=== PATIENT | male | born 1975 | race Caucasian/White ===

== ENCOUNTER 2021-02-12 15:22 | Outpatient (REF) | payer OTHER, SELFPAY | END 2021-02-12 15:23 | disposition home or self-care (01) | LOC: HO.BBR 15:22 | PROVIDERS: Visit Provider Internal Medicine Gastroenterology | DX: E83.118 Other hemochromatosis (principal) | CPT/HCPCS: 85014; 85018; 99195 ==

== ENCOUNTER 2021-04-09 15:19 | Outpatient (REF) | payer OTHER, SELFPAY | END 2021-04-09 15:20 | disposition home or self-care (01) | LOC: HO.BBR 15:19 | PROVIDERS: PCP Family Medicine; Visit Provider Internal Medicine Gastroenterology | DX: E83.118 Other hemochromatosis (principal) | CPT/HCPCS: 36415; 85014; 85018; 99195 ==

== ENCOUNTER 2021-05-11 14:46 | Outpatient (REF) | payer OTHER, SELFPAY | END 2021-05-11 14:47 | disposition home or self-care (01) | LOC: HO.BBR 14:46 | PROVIDERS: Visit Provider Internal Medicine Gastroenterology | DX: E83.110 Hereditary hemochromatosis (principal) | CPT/HCPCS: 36415; 85014; 85018; 99195 ==

== ENCOUNTER 2021-06-11 15:01 | Outpatient (REF) | payer OTHER, SELFPAY | END 2021-06-11 15:02 | disposition home or self-care (01) | LOC: HO.BBR 15:01 | PROVIDERS: PCP Family Medicine; Visit Provider Internal Medicine Gastroenterology | DX: E83.118 Other hemochromatosis (principal) | CPT/HCPCS: 85018; 99195 ==

== ENCOUNTER 2021-07-16 15:19 | Outpatient (REF) | payer OTHER, SELFPAY | END 2021-07-16 15:20 | disposition home or self-care (01) | LOC: HO.BBR 15:19 | PROVIDERS: Visit Provider Internal Medicine Gastroenterology | DX: E83.119 Hemochromatosis, unspecified (principal) | CPT/HCPCS: 85014; 85018; 99195 ==

== ENCOUNTER 2021-08-16 15:19 | Outpatient (REF) | payer OTHER, SELFPAY | END 2021-08-16 15:20 | disposition home or self-care (01) | LOC: HO.BBR 15:19 | PROVIDERS: PCP Family Medicine; Visit Provider Internal Medicine Gastroenterology | DX: E83.118 Other hemochromatosis (principal) | CPT/HCPCS: 85014; 85018; 99195 ==

== ENCOUNTER 2021-09-20 15:23 | Outpatient (REF) | payer OTHER, SELFPAY | END 2021-09-20 15:24 | disposition home or self-care (01) | LOC: HO.BBR 15:23 | PROVIDERS: Visit Provider Internal Medicine Gastroenterology | DX: E83.118 Other hemochromatosis (principal) | CPT/HCPCS: 85014; 85018; 99195 ==

== ENCOUNTER 2021-10-23 15:31 | Outpatient (REF) | payer OTHER, SELFPAY | END 2021-10-23 15:32 | disposition home or self-care (01) | LOC: HO.BBR 15:31 | PROVIDERS: Visit Provider Internal Medicine Gastroenterology | DX: E83.118 Other hemochromatosis (principal) | CPT/HCPCS: 85018; 99195 ==

== ENCOUNTER 2021-11-22 15:08 | Outpatient (REF) | payer OTHER, SELFPAY ==
[2021-11-22 16:53] LABS: Ferritin 77 ng/mL (20-250)
== END 2021-11-22 15:09 | disposition home or self-care (01) ==
LOC: HO.BBR 15:08
PROVIDERS: Visit Provider Internal Medicine Gastroenterology
DX: E83.118 Other hemochromatosis (principal)
CPT/HCPCS: 36415; 82728; 85014; 85018; 99195

== ENCOUNTER 2021-12-21 15:08 | Outpatient (REF) | payer OTHER, SELFPAY | END 2021-12-21 15:09 | disposition home or self-care (01) | LOC: HO.BBR 15:08 | PROVIDERS: Visit Provider Internal Medicine Gastroenterology | DX: E83.118 Other hemochromatosis (principal) | CPT/HCPCS: 85014; 85018; 99195 ==

== ENCOUNTER 2022-02-13 15:27 | Outpatient (REF) | payer OTHER, SELFPAY | END 2022-02-13 15:28 | disposition home or self-care (01) | LOC: HO.BBR 15:27 | PROVIDERS: Visit Provider Internal Medicine Gastroenterology | DX: E83.118 Other hemochromatosis (principal) | CPT/HCPCS: 85014; 85018; 99195 ==

== ENCOUNTER 2022-03-20 15:35 | Outpatient (REF) | payer OTHER, SELFPAY | END 2022-03-20 15:36 | disposition home or self-care (01) | LOC: HO.BBR 15:35 | PROVIDERS: Visit Provider Internal Medicine Gastroenterology | DX: E83.118 Other hemochromatosis (principal) | CPT/HCPCS: 85014; 85018; 99195 ==

== ENCOUNTER 2022-04-19 15:27 | Outpatient (REF) | payer OTHER, SELFPAY | END 2022-04-19 15:28 | disposition home or self-care (01) | LOC: HO.BBR 15:27 | PROVIDERS: Visit Provider Internal Medicine Gastroenterology | DX: E83.118 Other hemochromatosis (principal) | CPT/HCPCS: 85018; 99195 ==

== ENCOUNTER 2022-05-22 15:23 | Outpatient (REF) | payer OTHER, SELFPAY | END 2022-05-22 15:24 | disposition home or self-care (01) | LOC: HO.BBR 15:23 | PROVIDERS: Visit Provider Internal Medicine Gastroenterology | DX: E83.118 Other hemochromatosis (principal) | CPT/HCPCS: 85014; 85018; 99195 ==

== ENCOUNTER 2022-06-26 14:34 | Outpatient (REF) | payer OTHER, SELFPAY | END 2022-06-26 14:35 | disposition home or self-care (01) | LOC: HO.BBR 14:34 | PROVIDERS: Visit Provider Internal Medicine Gastroenterology | DX: E83.118 Other hemochromatosis (principal) | CPT/HCPCS: 85014; 85018; 99195 ==

== ENCOUNTER 2022-07-24 14:42 | Outpatient (REF) | payer OTHER, SELFPAY | END 2022-07-24 14:43 | disposition home or self-care (01) | LOC: HO.BBR 14:42 | PROVIDERS: Visit Provider Internal Medicine Gastroenterology | DX: E83.118 Other hemochromatosis (principal) | CPT/HCPCS: 85014; 85018; 99195 ==

== ENCOUNTER 2022-09-04 15:28 | Outpatient (REF) | payer OTHER, SELFPAY | END 2022-09-04 15:29 | disposition home or self-care (01) | LOC: HO.BBR 15:28 | PROVIDERS: Visit Provider Internal Medicine Gastroenterology | DX: E83.118 Other hemochromatosis (principal) | CPT/HCPCS: 85014; 85018; 99195 ==

== ENCOUNTER 2022-10-09 15:14 | Outpatient (REF) | payer OTHER, SELFPAY | END 2022-10-09 15:15 | disposition home or self-care (01) | LOC: HO.BBR 15:14 | PROVIDERS: Visit Provider Internal Medicine Gastroenterology | DX: E83.118 Other hemochromatosis (principal) | CPT/HCPCS: 85014; 85018; 99195 ==

== ENCOUNTER 2022-11-13 15:21 | Outpatient (REF) | payer OTHER, SELFPAY | END 2022-11-13 15:22 | disposition home or self-care (01) | LOC: HO.BBR 15:21 | PROVIDERS: Visit Provider Internal Medicine Gastroenterology | DX: E83.118 Other hemochromatosis (principal) | CPT/HCPCS: 85014; 85018; 99195 ==

== ENCOUNTER 2022-12-19 15:11 | Outpatient (REF) | payer OTHER, SELFPAY | END 2022-12-19 15:12 | disposition home or self-care (01) | LOC: HO.BBR 15:11 | PROVIDERS: Visit Provider Internal Medicine Gastroenterology | DX: E83.118 Other hemochromatosis (principal) | CPT/HCPCS: 85018; 99195 ==

== ENCOUNTER 2023-01-30 15:24 | Outpatient (REF) | payer OTHER, SELFPAY | END 2023-01-30 15:25 | disposition home or self-care (01) | LOC: HO.BBR 15:24 | PROVIDERS: PCP Family Medicine; Visit Provider Internal Medicine Gastroenterology | DX: E83.118 Other hemochromatosis (principal) | CPT/HCPCS: 85018; 99195 ==

== ENCOUNTER 2023-03-06 15:22 | Outpatient (REF) | payer OTHER, SELFPAY | END 2023-03-06 15:23 | disposition home or self-care (01) | LOC: HO.BBR 15:22 | PROVIDERS: Visit Provider Internal Medicine Gastroenterology | DX: E83.118 Other hemochromatosis (principal) | CPT/HCPCS: 85018; 99195 ==

== ENCOUNTER 2023-04-03 15:25 | Outpatient (REF) | payer OTHER, SELFPAY | END 2023-04-03 15:26 | disposition home or self-care (01) | LOC: HO.BBR 15:25 | PROVIDERS: Visit Provider Internal Medicine Gastroenterology | DX: E83.118 Other hemochromatosis (principal) | CPT/HCPCS: 85014; 85018; 99195 ==

== ENCOUNTER 2023-05-20 15:19 | Outpatient (REF) | payer OTHER, SELFPAY | END 2023-05-20 15:20 | disposition home or self-care (01) | LOC: HO.BBR 15:19 | PROVIDERS: Visit Provider Internal Medicine Gastroenterology | DX: E83.118 Other hemochromatosis (principal) | CPT/HCPCS: 85018; 99195 ==

== ENCOUNTER 2023-06-23 14:54 | Outpatient (REF) | payer OTHER, SELFPAY | END 2023-06-23 14:55 | disposition home or self-care (01) | LOC: HO.BBR 14:54 | PROVIDERS: Visit Provider Internal Medicine Gastroenterology | DX: E83.118 Other hemochromatosis (principal) | CPT/HCPCS: 85018; 99195 ==

== ENCOUNTER 2023-07-24 14:23 | Outpatient (REF) | payer OTHER, SELFPAY | END 2023-07-24 14:24 | disposition home or self-care (01) | LOC: HO.BBR 14:23 | PROVIDERS: Visit Provider Internal Medicine Gastroenterology | DX: E83.118 Other hemochromatosis (principal) | CPT/HCPCS: 85018; 99195 ==

== ENCOUNTER 2023-08-28 15:00 | Outpatient (REF) | payer OTHER, SELFPAY | END 2023-08-28 15:01 | disposition home or self-care (01) | LOC: HO.BBR 15:00 | PROVIDERS: PCP Family Medicine; Visit Provider Internal Medicine Gastroenterology | DX: E83.118 Other hemochromatosis (principal) | CPT/HCPCS: 85014; 85018; 99195 ==

== ENCOUNTER 2023-10-08 15:18 | Outpatient (REF) | payer OTHER, SELFPAY | END 2023-10-08 15:19 | disposition home or self-care (01) | LOC: HO.BBR 15:18 | PROVIDERS: PCP Family Medicine; Visit Provider Internal Medicine Gastroenterology | DX: E83.118 Other hemochromatosis (principal) | CPT/HCPCS: 85014; 85018; 99195 ==

== ENCOUNTER 2023-12-09 14:40 | Outpatient (REF) | payer OTHER, SELFPAY | END 2023-12-09 14:41 | disposition home or self-care (01) | LOC: HO.BBR 14:40 | PROVIDERS: PCP Family Medicine; Visit Provider Internal Medicine Gastroenterology | DX: E83.118 Other hemochromatosis (principal) | CPT/HCPCS: 85018; 99195 ==

== ENCOUNTER 2024-01-15 14:37 | Outpatient (REF) | payer OTHER, SELFPAY | END 2024-01-15 14:38 | disposition home or self-care (01) | LOC: HO.BBR 14:37 | PROVIDERS: PCP Family Medicine; Visit Provider Internal Medicine Gastroenterology | DX: E83.118 Other hemochromatosis (principal) | CPT/HCPCS: 85018; 99195 ==

== ENCOUNTER 2024-03-02 15:17 | Outpatient (REF) | payer OTHER, SELFPAY | END 2024-03-02 15:18 | disposition home or self-care (01) | LOC: HO.BBR 15:17 | PROVIDERS: PCP Family Medicine; Visit Provider Internal Medicine Gastroenterology | DX: E83.118 Other hemochromatosis (principal) | CPT/HCPCS: 85014; 85018; 99195 ==

== ENCOUNTER 2024-04-07 14:43 | Outpatient (REF) | payer OTHER, SELFPAY | END 2024-04-07 14:44 | disposition home or self-care (01) | LOC: HO.BBR 14:43 | PROVIDERS: PCP Family Medicine; Visit Provider Internal Medicine Gastroenterology | DX: E83.118 Other hemochromatosis (principal) | CPT/HCPCS: 85014; 85018; 99195 ==

== ENCOUNTER 2024-05-27 13:53 | Outpatient (REF) | payer OTHER, SELFPAY | END 2024-05-27 13:54 | disposition home or self-care (01) | LOC: HO.BBR 13:53 | PROVIDERS: PCP Family Medicine; Visit Provider Internal Medicine Gastroenterology | DX: E83.118 Other hemochromatosis (principal) | CPT/HCPCS: 85014; 85018; 99195 ==

== ENCOUNTER 2024-07-05 14:50 | Outpatient (REF) | payer OTHER, SELFPAY | END 2024-07-05 14:51 | disposition home or self-care (01) | LOC: HO.BBR 14:50 | PROVIDERS: PCP Family Medicine; Visit Provider Internal Medicine Gastroenterology | DX: E83.118 Other hemochromatosis (principal) | CPT/HCPCS: 85018; 99195 ==

== ENCOUNTER 2024-08-05 14:52 | Outpatient (REF) | payer OTHER, SELFPAY | END 2024-08-05 14:53 | disposition home or self-care (01) | LOC: HO.BBR 14:52 | PROVIDERS: PCP Family Medicine; Visit Provider Internal Medicine Gastroenterology | DX: E83.118 Other hemochromatosis (principal) | CPT/HCPCS: 85014; 85018; 99195 ==

== ENCOUNTER 2024-09-14 14:39 | Outpatient (REF) | payer OTHER, SELFPAY | END 2024-09-14 14:40 | disposition home or self-care (01) | LOC: HO.BBR 14:39 | PROVIDERS: Visit Provider Internal Medicine Gastroenterology | DX: E83.118 Other hemochromatosis (principal) | CPT/HCPCS: 85018; 99195 ==

== ENCOUNTER 2024-10-27 14:04 | Outpatient (REF) | payer OTHER, SELFPAY | END 2024-10-27 14:05 | disposition home or self-care (01) | LOC: HO.BBR 14:04 | PROVIDERS: PCP Family Medicine; Visit Provider Internal Medicine Gastroenterology | DX: E83.118 Other hemochromatosis (principal) | CPT/HCPCS: 85018; 99195 ==

== ENCOUNTER 2024-12-02 13:23 | Outpatient (REF) | payer OTHER, SELFPAY | END 2024-12-02 13:24 | disposition home or self-care (01) | LOC: HO.BBR 13:23 | PROVIDERS: PCP Family Medicine; Visit Provider Internal Medicine Gastroenterology | DX: E83.118 Other hemochromatosis (principal) | CPT/HCPCS: 85018 ==

== ENCOUNTER 2024-12-16 15:14 | Outpatient (REF) | payer OTHER, SELFPAY | END 2024-12-16 15:15 | disposition home or self-care (01) | LOC: HO.BBR 15:14 | PROVIDERS: PCP Family Medicine; Visit Provider Internal Medicine Gastroenterology | DX: E83.118 Other hemochromatosis (principal) | CPT/HCPCS: 85018; 99195 ==

== ENCOUNTER 2025-01-27 14:41 | Outpatient (REF) | payer OTHER, SELFPAY | END 2025-01-27 14:42 | disposition home or self-care (01) | LOC: HO.BBR 14:41 | PROVIDERS: PCP Family Medicine; Visit Provider Internal Medicine Gastroenterology | DX: E83.118 Other hemochromatosis (principal) | CPT/HCPCS: 85014; 85018; 99195 ==

== ENCOUNTER 2025-02-23 15:23 | Outpatient (REF) | payer OTHER, SELFPAY | END 2025-02-23 15:24 | disposition home or self-care (01) | LOC: HO.BBR 15:23 | PROVIDERS: PCP Family Medicine; Visit Provider Internal Medicine Gastroenterology | DX: E83.118 Other hemochromatosis (principal) | CPT/HCPCS: 85014; 85018; 99195 ==

== ENCOUNTER 2025-03-31 15:18 | Outpatient (REF) | payer OTHER, SELFPAY | END 2025-03-31 15:19 | disposition home or self-care (01) | LOC: HO.BBR 15:18 | PROVIDERS: PCP Family Medicine; Visit Provider Internal Medicine Gastroenterology | DX: E83.118 Other hemochromatosis (principal) | CPT/HCPCS: 85014; 85018; 99195 ==

== ENCOUNTER 2025-04-06 15:24 | Outpatient (REF) | payer OTHER, SELFPAY | END 2025-04-06 15:25 | disposition home or self-care (01) | LOC: HO.BBR 15:24 | PROVIDERS: PCP Family Medicine; Visit Provider Internal Medicine Gastroenterology | DX: E83.118 Other hemochromatosis (principal) | CPT/HCPCS: 85014; 85018; 99195 ==

== ENCOUNTER 2025-04-12 08:04 | Outpatient (REF) | payer OTHER, SELFPAY | END 2025-04-12 08:05 | disposition home or self-care (01) | LOC: HO.BBR 08:04 | PROVIDERS: PCP Family Medicine; Visit Provider Internal Medicine Gastroenterology | DX: E83.118 Other hemochromatosis (principal) | CPT/HCPCS: 85018; 99195 ==

== ENCOUNTER 2025-05-17 07:59 | Outpatient (REF) | payer OTHER, SELFPAY | END 2025-05-17 08:00 | disposition home or self-care (01) | LOC: HO.BBR 07:59 | PROVIDERS: PCP Family Medicine; Visit Provider Internal Medicine Gastroenterology | DX: E83.118 Other hemochromatosis (principal) | CPT/HCPCS: 85014; 85018; 99195 ==

== ENCOUNTER 2025-06-17 07:53 | Outpatient (REF) | payer OTHER, SELFPAY | END 2025-06-17 07:54 | disposition home or self-care (01) | LOC: HO.BBR 07:53 | PROVIDERS: PCP Family Medicine; Visit Provider Internal Medicine Gastroenterology | DX: E83.118 Other hemochromatosis (principal) | CPT/HCPCS: 85018; 99195 ==

== ENCOUNTER 2025-07-14 08:44 | Outpatient (REF) | payer OTHER, SELFPAY ==
--- OUTSIDE RECORDS SUMMARY | 2025-07-14 08:57 | XMS_ITS | Clinical Summary ---
Author Organization [facility] Address [address] [place] [phone] Phone Care Team Providers Care Dispatcher Street Department Name Role Phone Mahamed Albert DO Unavailable [phone] CeciliaEnrrique lafleurthanh Ponce DO Unavailable Genie Guerra CNP Primary Care Provide r Fabiola Irizarry AD OPERATIONS COORDINATOR Unavailable [phone] Allergies No known active allergies Medications omega 8-zzx-vth-fish oil 1,000 mg (120 mg-180 mg) Cap 1 cap(s) Active yebgggjb-tmj-HV -lycopen-lutein 0.4-2-250 mg-mg-mcg Tab 1 tab(s) Active lisinopril (PRINIVIL,ZESTR KS) 40 MG tablet TAKE (1) TABLET DAILY. 90 tablet 1 5 Active hydroCHLOROthia zide 25 MG tablet Take 1 tablet (25 mg total) by mouth daily. 90 tablet 5 Active hydroCHLOROthia zide 25 MG tablet Take 1 tablet (25 mg total) by mouth daily. 90 tablet 5 06/22/20 25 Discontinu ed(Reorder ) Active Problems Patient Care Coordination No te Formatting of this note migh t be different from the original. Height 181.4cm no shoes on. 01/12/2020 CA Problem Noted Date Diagnosed Date Sebaceous cyst 01/02/2024 Assessment & Plan (01/02/2024 5:01 PM EST): Pt placed on Keflex and referred to surgery for excision of cyst. Rather large cyst that has reoccurred and will require attention from surgery. Impaired fasting glucose 07/28/2023 Overview (07/28/2023): 07/2023 111; Assessment & Plan (07/04/2025 5:14 PM EDT): A1C well within normal, healthy diet, remain active, reduce weight Assessment & Plan (07/28/2023 4:51 PM EDT): Glucose in prediabetes range, recommend regular exercise and weight loss of at least 20 - 25 lbs Class 1 obesity due to exces s calories with serious comorbidity and body mass index (BMI) of 34.0 to 34.9 in adult 01/28/2022 Assessment & Plan (07/04/2025 5:12 PM EDT): Weight loss around th waist would be beneficial, remain active, healthy diet Assessment & Plan (06/30/2024 5:00 PM EDT): Has lost weight continue further weight reduction Assessment & Plan (07/28/2023 4:50 PM EDT): Discussed that normal BMI is 25 or less, recommend he reduce weight by at least 20 to 25 pounds which will get him closer to a normal BMI Assessment & Plan (01/27/2023 4:50 PM EST): Weight has decreased. Further weight reduction recommended. Remain active. 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 Workup including PET CT and bone marrow biopsy negative. Treated with curative intent radiation therapy completed May 2014 remains cancer free, was seen annually by Dr Albert until 2021 Assessment & Plan (07/04/2025 5:13 PM EDT): No recurrence in ten plus years Assessment & Plan (06/30/2024 4:59 PM EDT): Ten years post treatment without recurrence Assessment & Plan (01/27/2023 4:46 PM EST): Has remained free of recurrence since 2013. Hereditary hemochromatosis 08/12/2018 Overview (12/30/2024): Under care of [facility]/ [place] [facility] [place] & Plan (07/04/2025 5:13 PM EDT): Under the care of [facility], [place] [facility] [place] & Plan (12/30/2024 4:50 PM EST): Under the care of [facility], getting monthly phlebotomy Assessment & Plan (06/30/2024 4:58 PM EDT): Contin[place] to get [place] [facility] [place] & Plan (01/27/2023 4:47 PM EST): Under the care of [facility] and regular [place] [facility] [place] Assessment & Plan (01/28/2022 5:01 PM EST): Under the care of [facility] [place] [facility] [place] Assessment & Plan (03/29/2019 4:12 PM EDT): Currently regimen for phlebotomy is every three months, he states numbers start to rise when ever than has been tried in past. Has upcoming appt with Dr Nelson and will see if intervals are decreased back to monthly. Hyperlipidemia 10/31/2017 Assessment & Plan (07/04/2025 5:13 PM EDT): Continue low fat diet and reduce weight Assessment & Plan (07/28/2023 4:46 PM EDT): Current 10-year CV risk is 4.5% which is low. Recommend low fat heart healthy diet, regular exercise and reducing weight Hypertension 10/31/2017 Assessment & Plan (07/04/2025 5:14 PM EDT): Stable on current regimen Assessment & Plan (12/30/2024 4:51 PM EST): Close to goal, asked that he check some resting blood pressures at home, keep log and bring to next visit. Continue current regimen Assessment & Plan (06/30/2024 4:59 PM EDT): Stable on current regimen Assessment & Plan (07/28/2023 4:48 PM EDT): Stable on current regimen Assessment & Plan (01/27/2023 4:53 PM EST): Stable on current regimen. Follow low sodium heart healthy diet. Recommending sleep eval due to hx of HTN, obesity and narrow airway, full neck. Not aware of witnessed apneas Assessment & Plan (01/28/2022 5:00 PM EST): Stable on current regimen, healthy lifestyle, achieve a healthier weight Assessment & Plan (03/29/2019 4:11 PM EDT): Remains elevated > 130/80. If phlebotomy is changed back to monthly then see if BP improves otherwise will need to either incr dose of Lisinopril or add another anti-HTN med. Remain active, avoid weight gain. Continue to follow low sodium heart healthy diet Encounters Date Type Department Care Team Description 07/04/2025 4:00 PM EDT Office Visit [address] [address] Genie Guerra, DANAE Annual physical exam (Primary Dx); Hereditary hemochromatosis; Screen for colon cancer; Class 1 obesity due to excess calories with serious comorbidity and body mass index (BMI) of 34.0 to 34.9 in adult; History of follicular lymphoma; Pure hypercholesterolemia; Primary hypertension; Impaired fasting glucose 06/30/2025 8:11 AM EDT - 06/30/2025 11:59 PM EDT Hospital Encounter [facility] [address] [place] [address] Genie Guerra CNP Discharge Disposition: Home or Self Care 06/30/2025 Transcribe Orders [facility] [address] [place] [address] Genie Guerra CNP Pure hypercholesterolemia (Primary Dx); Primary hypertension; Impaired fasting glucose from Last 3 Months Immunizations Immunization Administration Dates Next Due COVID-19 (Pre-09/22) Pfizer Vaccine, mRNA, PF ,03/07/2021 Influenza Quadrivalent MDCK Preservative Free IM 08/25/2020 Influenza Quadrivalent Preservative Free IM 10/31,08/28/2020 Influenza trivalent preservative free intraderma l 10/10/2014 Td (adult) 5 Lf Tetanus Toxoid, PF, Adsorbed ,06/18/2004 Tdap 01/21/2013 Family History Medical History Relation Comments Hypertension Brother No Known Problems Daughter Hypertension Father Leukemia Father ? CLL Lymphoma Father B Cell Cirrhosis Mother Never drank alco hol Diabetes Mother Hypertension Mother Stroke Mother sepsis Mother Complication of surgery for female cancer Relation Status Comments Brother Daughter Father Alive Mother Social History Tobacco Use Types Packs/Day Years Used Date Smoking Tobacco: Former Smokeless Tobacco: Never Tobacco Cessation:Counseling Given: Not Answered Alcohol Use Standard Drinks/Week Comments Yes 0 (1 standard drink = 0.6 oz pur e alcohol) Child or Family Care Answer Date Record ed Do you have problems with on e of the following making it difficult for you to work, study, or receive health care? No 07/04/2025 Education Answer Date Recorded Are you interested in help w ith more adult education (for example, completing high school, GED, job training, learning the Croatian language, technical skills, or developing parenting skills)? No 07/04/2025 Are you concerned about learning? Not on file 07/04/2025 No 07/04/2025 Yes 07/04/2025 Food Answer Date Recorded Within the past 6 months we worried whether our food would run out before we got money to buy more. Never True 07/04/2025 Within the past 6 months the food we bought just didn't last and we didn't have enough money to get more. Never True Residential Stability Answer Date Recor ded What is your housing situation today? I have ruperto singh 07/04/2025 How many times have you move d in the past 12 months? Zero (I did not move) 07/04/2025 Paying for Meds Answer Date Recorded Do you have trouble paying for medicines? No 07/04/2025 Paying Utility Bills Answer Date Record ed Do you have trouble paying your heating or elect ricity bill? No 07/04/2025 Transportation Answer Date Recorded Has the lack of transportati on kept you from medical appointments or from getting medications? No 07/04/2025 Unemployment Answer Date Recorded Are you currently unemployed or working on a part-time or temporary basis, and looking for work? No 01/26/2023 Digital Access Answer Date Recorded No 07/04/2025 Yes 07/04/2025 Do you have reliable internet access at home? Ye s 07/04/2025 Do you have a device (e.g., phone, tablet, computer) with a working camera? Yes 07/04/2025 Intimate Partner Violence Answer Date R ecorded Denied Basic Needs Not on file 07/04/2025 In the past 12 months have y ou been in a relationship with a person who hurts, threatens, or tries to control you? No 07/04/2025 Worried food would run out Not on file 07/04 In the past 12 months have y ou been in a relationship with a person who hurts, threatens, or tries to control you? No 07/04/2025 Sex and Gender Information Value Date Recorded Sex Assigned at Male 07/18/2020 2:43 PM EDT Legal Sex Male 9:27 PM EDT Gender Identity Male 07/18/2020 2:43 PM EDT Sexual Orientation Straight 07/18/2020 2: 43 PM EDT Last Filed Vital Signs Vital Sign Reading Time Taken Comments Blood Pressure 130/70 07/04/2025 3:49 PM EDT Pulse 80 07/04/2025 3:49 PM EDT Temperature 36.3 C (97.4 F) 07/04/2025 3:49 PM EDT Respiratory Rate 20 07/04/2025 3:49 PM EDT Oxygen Saturation 98% 07/04/2025 3:49 PM EDT Inhaled Oxygen Concentration - - Weight 110.7 kg (244 lb) 07/04/2025 3:49 PM EDT Height 182.9 cm (6') 07/04/2025 3:49 PM EDT Body Mass Index 33.09 07/04/2025 3:49 PM EDT Plan of Treatment Upcoming Encounters Date Type Department Care Team (Late st Contact Info) Description 01/05/2026 4:30 PM EST Office Visit [address] [address] Genie Guerra, AMPOULE INSPECTOR [address] [place] [address] [email or web address] Health Maintenance Due Date Last Done Comments SMOKING Hx and SMOKELESS TOBACCO SCREENING 1990 COLOGUARD 2022 COLONOSCOPY 2022 COLORECTAL CANCER SCREENING 2022 FIT TEST 2022 FOBT 2022 SIGMOIDOSCOPY 2022 VIRTUAL COLONOSCOPY 2022 COVID-19 VACCINE ( season) 2024 11/18/2021, 03/28/2021, 03/07/2021 BLOOD PRESSURE 01/04/2026 07/04/2025 CREATININE LEVEL 06/30/2026 06/30/2025, , 03/26/2019 POTASSIUM LEVEL 06/30/2026 06/30/2025, 07/02, 03/26/2019 DEPRESSION SCREENING 07/04/2026 07/04/2025 SCREENING FOR DIABETES 06/30/2028 06/30/2025, 2024 LIPID PANEL 06/30/2030 06/30/2025, 07/02, 03/26/2019, Additional history exists Adult Td,Tdap Booster 01/27/2033 01/27/2023 , 01/21/2013, 06/18/2004 HIV ONE-TIME SCREENING (18-65 YEARS) Completed 04/13/2014 HEPATITIS C SCREENING Completed 05/18/2019 HEPATITIS A VACCINES Aged Out No long er eligible based on patient's age to complete this topic HIB VACCINES Aged Out No longer eligi ble based on patient's age to complete this topic MENINGOCOCCAL VACCINES (ACWY) Aged Out No longer eligible based on patient's age to complete this topic MENINGOCOCCAL VACCINES (B) Aged Out N o longer eligible based on patient's age to complete this topic PNEUMOCOCCAL VACCINES (0-49 years) Aged Out No longer eligible based on patient's age to complete this topic Medical Devices Not on file Procedures Procedure Name Priority Date/Time Associated Diagnosis Comments LIPID PANEL Routine 06/30/2025 8:12 AM EDT Pure hypercholesterolemia Primary hypertension Impaired fasting glucose COMPREHENSIVE METABOLIC PANEL Routine 06/30/2025 8:12 AM EDT Pure hypercholesterolemia Primary hypertension Impaired fasting glucose HEMOGLOBIN A1C Routine 06/30/2025 8:12 AM EDT Pure hypercholesterolemia Primary hypertension Impaired fasting glucose LIVER FIBROSIS TEST Routine 05/18/2019 3 :26 PM EDT Hereditary hemochromatosis OUTSIDE HIV Routine 04/13/2014 from Last 3 Months or Most Recently Relevant to Health Maintenance Results * (ABNORMAL) Comprehensive metabolic panel (06/30/2025 8:12 AM EDT) SODIUM 136 133 - 146 mmol/L [facility] POTASSIUM 4.2 3.3 - 5.1 mmol/L [facility] CHLORIDE 101 96 - 108 mmol/L [facility] CO2 25 21 - 35 mmol/L [facility] BUN 21(H) 6 - 19 mg/dL [facility] CREATININE 0.70 0.5 - 1.5 mg/dL [facility] GLUCOSE 104(H) 70 - 99 mg/dL [facility] ALBUMIN 4.4 3.9 - 4.8 g/dL [facility] TOTAL PROTEIN 7.5 6.5 - 8.0 g/dL [facility] CALCIUM 9.7 8.4 - 10.3 mg/dL [facility] ALKALINE PHOSPHATASE 83 39 - 117 U/L [facility] TOTAL BILIRUBIN 1.0 0.0 - 1.2 mg/dL [facility] AST 39(H) 0 - 37 U/L [facility] ALT 59(H) 0 - 40 U/L [facility] GLOBULIN 3.1 1 - 4.8 g/dL [facility] EGFR 114 >59 mL/min/1.7 3m2 [facility] Comment:Estimated glomerular filtration rate calculated using the CKD-EPI refit equation. ANION GAP 14 10 - 20 mmol/L [facility] Blood 06/30/2025 8:12 AM EDT 06/30/2025 8:15 AM EDT Genie Guerra [facility] LAB BLOOD ORDERABLES Final Result Performing Organization Address [facility] Co de Phone Number [address] [phone] * Hemoglobin A1c (06/30/2025 8:12 AM EDT) HEMOGLOBIN A1C 4.7 4.3 - 5.8 % [facility] Blood 06/30/2025 8:12 AM EDT 06/30/2025 8:14 AM EDT Genie Guerra [facility] LAB BLOOD ORDERABLES Final Result Performing Organization Address City/[facility]/ZIP Co de Phone Number [address] [address] * (ABNORMAL) Lipid panel (06/30/2025 8:12 AM EDT) HDL 41 mg/dL [facility] Comment: Interpretation <40 mg/dL: Low HDL cholesterol (major risk factor for CHD) Greater than or equal to 60 mg/dL: High HDL cholesterol ( negative risk factor for CHD) HDL - cholesterol is affected by a number of factors, e.g. smoking, excerise, hormones, sex and age. CHOLESTEROL 217 0 - 240 mg/dL [facility] TRIGLYCERIDES 175(H) 30 - 160 mg/dL [facility] LDL 141(H) 50 - 129 mg/dL [facility] Comment: LDL levels in terms of risk for coronary heart disease: <100 mg/dL: Optimal 100-129 mg/dL: Near or above optimal 130-159 mg/dL: Borderline high 160-189 mg/dL: High >190 mg/dL: Very High CARDIAC RISK RATIO 5.3(H) 3.4 - 5.0 [facility] Blood 06/30/2025 8:12 AM EDT 06/30/2025 8:15 AM EDT us Genie Guerra [facility] LAB BLOOD ORDERABLES Final Result Performing Organization Address City/State/[facility] Co de Phone Number [address] [phone] * (ABNORMAL) Liver fibrosis test (05/18/2019 3:26 PM EDT) Fibrosis score 0.35 [facility] Interpretation (Fibrosis) SEE NOTE [facility] Comment: (NOTE) minimal fibrosis Fibro Test Score Metavir Score 0.00-0.21 F0 no fibrosis 0.22-0.27 F0-F1 0.28-0.31 F1 minimal fibrosis 0.32-0.48 F1-F2 0.49-0.58 F2 moderate fibrosis 0.59-0.72 F3 advanced fibrosis 0.73-0.74 F3-F4 0.75-1.00 F4 severe fibrosis HCV Fibrosis Grade SEE NOTE [facility] Comment:Result: F1 NECROINFLAMM SCORE 0.48 [facility] NECROINFLAMM GRADE SEE NOTE [facility] Comment:Result: A1 NECROINFLAMM INTERP SEE NOTE [facility] Comment: (NOTE) minimal activity ActiTest Score Metavir Score 0.00-0.17 A0 no activity 0.18-0.29 A0-A1 0.30-0.36 A1 minimal activity 0.37-0.52 A1-A2 0.53-0.60 A2 significant activity 0.61-0.62 A2-A3 0.63-1.00 A3 severe activity A2 Macroglobulin 166 106 - 279 mg/dL [facility] Haptoglobin 72 43 - 212 mg/dL [facility] Apolipoprotein A1 128 94 - 176 mg/dL [facility] TOTAL BILIRUBIN 0.7 0.2 - 1.2 mg/dL [facility] GGT 76 3 - 95 U/L [facility] ALT 77(H) 9 - 46 U/L [facility] Specimen/Product ID [id number] [facility] Comments (Chemistry) SEE NOTE [facility] Comment: (NOTE) The reliability of results is dependent on compliance with the preanalytical and analytical conditions recommended by 1234ENTER. The tests have to be deferred for: acute hemolysis, acute hepatitis, acute inflammation, extra hepatic cholestasis. The advice of a specialist should be sought for interpretation in chronic hemolysis and Gilbert's syndrome. The test interpretation is not validated in liver transplant patients. Isolated extreme values of one of the components should lead to caution in interpreting the results. In case of discordance between a biopsy result and a test, it is recommended to seek the advice of a specialist. The causes of these discordances could be due to a flaw of the test or to a flaw in the biopsy: i.e. a liver biopsy has a 33% variability rate for one fibrosis stage. FibroTest is interpretable for chronic hepatitis B and C, alcoholic and non alcoholic steatosis. ActiTest is interpretable for chronic hepatitis B and C. The performance characteristics have been determined by [facility]. It has not been cleared or approved by the U.S. Food and Drug Administration. Performance characteristics refer to the analytical performance of the test. [employer], the associated logo, [facility] and all associated [employer] cerrato are the registered trademarks of [employer]. All third constitution party cerrato - (R) and (TM) - are the property of their respective owners. (C) 1522-6551 [employer]. All rights reserved. Test performed at [facility] [address] [facility] [place] [address] Director: ROBERTO VILLELA MD,PHD,SHANTELL Blood 05/18/2019 3:26 PM EDT 05/18/2019 3:31 PM EDT Robe Nelson MD LAB BLOOD ORDERABLES Final Result [facility] [address] [place] [address] * OUTSIDE HIV TEST (04/13/2014) HIV - External Neg Historical Provider LAB BLOOD ORDERABLES Veronika l Result from Last 3 Months or Most Recently Relevant to Health Maintenance [facility] H[facility] Care Teams Dispatcher Street Department Relationship Specialty Start Date End Date Genie Guerra CNP [address] [place] [phone] [email or web address] PCP - General Family Medicine 03/23/19 Mahamed Albert DO [address] [place] [phone] [email or web address] Primary Oncologist Hematology and Oncology 01/01/18 Jair Mendoza DO [address] [place] [address] [email or web address] Family Medicine 01/07/19 Fabiola Irizarry FNP [address] [place] [phone] [email or web address] Nurse Practitioner Hematology and Oncology 02/19/21 Additional Source Comments The information contained in this document represents components of the legal health record. It is not the complete legal health record.[facility]
--- OUTSIDE RECORDS SUMMARY | 2025-07-14 08:57 | XMS_ITS | Clinical Summary ---
Author Organization [facility] Address [address] [place] [address] Care Team Providers Care Distribution Engineer Name Role Phone Unknown, Provider MD Primary Care Provider Unava ilable Social History Tobacco Use Types Packs/Day Years Used Date Smoking Tobacco: Never Assessed Sex and Gender Information Value Date Recorded Sex Assigned at Not on file Legal Sex Male 12:58 EDT Gender Identity Not on file Sexual Orientation Not on file Plan of Treatment Health Maintenance Due Date Last Done Comments Hepatitis C Screen 1975 Hepatitis B Vaccine (1 of 3 - 19+ 3-dose series) 01/06 COVID-19 Vaccine ( season) 2024 Care Teams Distribution Engineer Relationship Specialty Start Date End Date Unknown, Provider, PCP - General 04/07/14
== END 2025-07-14 08:45 | disposition home or self-care (01) ==
LOC: HO.BBR 08:44
PROVIDERS: PCP Family Medicine; Visit Provider Internal Medicine Gastroenterology
DX: E83.118 Other hemochromatosis (principal)
CPT/HCPCS: 85018; 99195

== ENCOUNTER 2025-08-04 07:55 | Outpatient (REF) | payer OTHER, SELFPAY | END 2025-08-04 07:56 | disposition home or self-care (01) | LOC: HO.BBR 07:55 | PROVIDERS: PCP Family Medicine; Visit Provider Internal Medicine Gastroenterology | DX: E83.118 Other hemochromatosis (principal) | CPT/HCPCS: 85018; 99195 ==

== ENCOUNTER 2025-09-07 07:53 | Outpatient (REF) | payer OTHER, SELFPAY ==
--- OUTSIDE RECORDS SUMMARY | 2025-09-07 07:59 | XMS_ITS | Clinical Summary ---
Author Organization [facility] Address [address] [place] [address] Care Team Providers Care Heavy Antiarmor Weapons Infantryman Name Role Phone Unknown, Provider MD Primary [...] - 19+ 3-dose series) 01/06 COVID-19 Vaccine (2023- season) 2024 Care Teams Heavy Antiarmor Weapons Infantryman Relationship Specialty Start Date End Date Unknown, Provider, PCP - General 04/07/14
--- OUTSIDE RECORDS SUMMARY | 2025-09-07 07:59 | XMS_ITS | Clinical Summary ---
Author Organization [facility] Address [address] [facility] [address] [place] [address] Phone Care Team Providers Care Channel Machine Operator Name Role Phone Mahamed Albert DO Unavailable [phone] CeciliaEnrrique lafleurthanh Ponce DO Unavailable Genie Guerra CNP Primary Care Provide r Fabiola Irizarry SHIP PAINTER HELPER Unavailable [phone] Allergies No known active allergies Medications omega 7-tkn-hkd-fish oil 1,000 mg (120 mg-180 mg) Cap 1 cap(s) Active utbcvvbn-eeq-DN- lycopen-lutein 0.4-2-250 mg-mg-mcg Tab 1 tab(s) Active hydroCHLOROthiaz laura 25 MG tablet Take 1 tablet (25 mg total) by mouth daily. 90 tablet 06/22/2025 Active lisinopril (PRINIVIL,ZESTRI L) 40 MG tablet Take 1 tablet (40 mg total) by mouth daily. 90 tablet 3 07/18/2025 Active Active Problems Patient Care Coordination No te [...] Lymphoma-B cell type Dr Mcgrath & Dr Albert. Workup including PET CT and bone marrow [...] hemochromatosis 08/12/2018 Overview (12/30/2024): Under care of [facility]/ [place] [facility] Assessment & Plan (07/04/2025 5:13 PM EDT): Under the care of [facility], [place] [facility] Assessment & Plan (12/30/2024 4:50 PM EST): Under the care of [facility], getting monthly phlebotomy Assessment & Plan (06/30/2024 4:58 PM EDT): Continues to get regular [place]lebot[place] [facility] Assessment & Plan (01/27/2023 4:47 PM EST): Under the care of [facility] and regular phlebotomy by [facility] Assessment & Plan (01/28/2022 5:01 PM EST): Under the care of [facility] gets monthly phlebotomy [place] [facility] Assessment & Plan (03/29/2019 4:12 PM EDT): [...] Description 07/04/2025 4:00 PM EDT Office Visit [facility] [address] [place] [phone] Genie Guerra CNP Annual physical exam (Primary Dx); Hereditary hemochromatosis; Screen for colon cancer; Class 1 obesity due to excess calories with serious comorbidity and body mass index (BMI) of 34.0 to 34.9 in adult; History of follicular lymphoma; Pure hypercholesterolemia; Primary hypertension; Impaired fasting glucose 06/30/2025 8:11 AM EDT - 06/30/2025 11:59 PM EDT Hospital Encounter [facility] [address] [place] [address] Genie Guerra CNP Discharge Disposition: Home or Self Care 06/30/2025 Transcribe Orders [facility] [address] [place] [address] Genie Guerra CNP Pure hypercholesterolemia (Primary Dx); [...] high school, GED, job training, learning the Divehi language, technical skills, or developing parenting skills)? [...] Description 01/05/2026 4:30 PM EST Office Visit [address] [address] Genie Guerra, CONTRACT DESIGN AGENT [address] [place] [address] Health Maintenance Due Date Last Done Comments SMOKING Hx and SMOKELESS TOBACCO SCREENING 1990 COLOGUARD 2022 COLONOSCOPY 2022 COLORECTAL CANCER SCREENING 2022 FIT TEST 2022 FOBT 2022 SIGMOIDOSCOPY 2022 VIRTUAL COLONOSCOPY 2022 INFLUENZA VACCINE (#1) 2025 , 08/28/2020, 08/25/2020, Additional history exists COVID-19 VACCINE ( season) 2025 11/18/2021, 03/28/2021, 03/07/2021 BLOOD PRESSURE 01/04/2026 07/04/2025 [...] EDT) SODIUM 136 133 - 146 mmol/L [facility] POTASSIUM 4.2 3.3 - 5.1 mmol/L [facility] CHLORIDE 101 96 - 108 mmol/L [facility] CO2 25 21 - 35 mmol/L [facility] BUN 21(H) 6 - 19 mg/dL [facility] CREATININE 0.70 0.5 - 1.5 mg/dL [facility] GLUCOSE 104(H) 70 - 99 mg/dL [facility] ALBUMIN 4.4 3.9 - 4.8 g/dL [facility] TOTAL PROTEIN 7.5 6.5 - 8.0 g/dL [facility] CALCIUM 9.7 8.4 - 10.3 mg/dL [facility] ALKALINE PHOSPHATASE 83 39 - 117 U/L [facility] TOTAL BILIRUBIN 1.0 0.0 - 1.2 mg/dL [facility] AST 39(H) 0 - 37 U/L [facility] ALT 59(H) 0 - 40 U/L [facility] GLOBULIN 3.1 1 - 4.8 g/dL [facility] EGFR 114 >59 mL/min/1.7 3m2 [facility] Comment:Estimated glomerular filtration rate calculated using the CKD-EPI refit equation. ANION GAP 14 10 - 20 mmol/L [facility] Blood 06/30/2025 8:12 AM EDT 06/30/2025 8:15 AM EDT Genie Guerra [facility] LAB BLOOD ORDERABLES Final Result Performing Organization Address [facility] Co de Phone Number [address] [address] * Hemoglobin A1c (06/30/2025 8:12 AM EDT) HEMOGLOBIN A1C 4.7 4.3 - 5.8 % [facility] Blood 06/30/2025 8:12 AM EDT 06/30/2025 8:14 AM EDT Genie Guerra [facility] LAB BLOOD ORDERABLES Final Result Performing Organization Address [facility]/ZIP Co de Phone Number [address] [address] * (ABNORMAL) Lipid panel (06/30/2025 8:12 AM EDT) HDL 41 mg/dL [facility] Comment: Interpretation <40 mg/dL: Low HDL cholesterol (major risk factor for CHD) Greater than or equal to 60 mg/dL: High HDL cholesterol ( negative risk factor for CHD) HDL - cholesterol is affected by a number of factors, e.g. smoking, excerise, hormones, sex and age. CHOLESTEROL 217 0 - 240 mg/dL [facility] TRIGLYCERIDES 175(H) 30 - 160 mg/dL [facility] LDL 141(H) 50 - 129 mg/dL [facility] Comment: LDL levels in terms of risk for coronary heart disease: <100 mg/dL: Optimal 100-129 mg/dL: Near or above optimal 130-159 mg/dL: Borderline high 160-189 mg/dL: High >190 mg/dL: Very High CARDIAC RISK RATIO 5.3(H) 3.4 - 5.0 [facility] Blood 06/30/2025 8:12 AM EDT 06/30/2025 8:15 AM EDT us Genie Guerra [facility] LAB BLOOD ORDERABLES Final Result Performing Organization Address City/State/[facility] Co de Phone Number [address] [address] * (ABNORMAL) Liver fibrosis test (05/18/2019 3:26 PM EDT) Fibrosis score 0.35 [facility] Interpretation (Fibrosis) SEE NOTE [facility] Comment: (NOTE) minimal fibrosis Fibro Test Score Metavir Score 0.00-0.21 F0 no fibrosis 0.22-0.27 F0-F1 0.28-0.31 F1 minimal fibrosis 0.32-0.48 F1-F2 0.49-0.58 F2 moderate fibrosis 0.59-0.72 F3 advanced fibrosis 0.73-0.74 F3-F4 0.75-1.00 F4 severe fibrosis HCV Fibrosis Grade SEE NOTE [facility] Comment:Result: F1 NECROINFLAMM SCORE 0.48 [facility] NECROINFLAMM GRADE SEE NOTE [facility] Comment:Result: A1 NECROINFLAMM INTERP SEE NOTE [facility] Comment: (NOTE) minimal activity ActiTest Score Metavir Score 0.00-0.17 A0 no activity 0.18-0.29 A0-A1 0.30-0.36 A1 minimal activity 0.37-0.52 A1-A2 0.53-0.60 A2 significant activity 0.61-0.62 A2-A3 0.63-1.00 A3 severe activity A2 Macroglobulin 166 106 - 279 mg/dL [facility] Haptoglobin 72 43 - 212 mg/dL [facility] Apolipoprotein A1 128 94 - 176 mg/dL [facility] TOTAL BILIRUBIN 0.7 0.2 - 1.2 mg/dL [facility] GGT 76 3 - 95 U/L [facility] ALT 77(H) 9 - 46 U/L [facility] Specimen/Product ID [id number] [facility] Comments (Chemistry) SEE NOTE [facility] Comment: (NOTE) The reliability of results is dependent on compliance with the preanalytical and analytical conditions recommended by [employer]. The tests have to be deferred for: [...] The performance characteristics have been determined by [employer] [facility]. It has not been cleared or approved by the U.S. Food and Drug Administration. Performance characteristics refer to the analytical performance of the test. Anaqua, [employer], the associated logo, [employer] and all associated [employer] cerrato are the registered trademarks of [employer]. All third libertarian cerrato - (R) and (TM) - are the property of their respective owners. (C) 1173-2655 [employer]. All rights reserved. Test performed at [employer] [facility] [address] [place] [address] Director: ROBERTO VILLELA MD,PHD,SHANTELL Blood 05/18/2019 3:26 PM EDT 05/18/2019 3:31 PM EDT Robe Nelson MD LAB BLOOD ORDERABLES Final Result [facility] [address] [place] [address] * OUTSIDE HIV TEST (04/13/2014) HIV - External Neg us Historical Provider LAB BLOOD ORDERABLES Veronika l Result from Last 3 Months or Most Recently Relevant to Health Maintenance [facility] HMO Care Teams Channel Machine Operator Relationship Specialty Start Date End Date Genei Guerra CNP [address] [place] [address] [email or web address] PCP - General Family Medicine 03/23/19 Mahamed Albert DO [address] [place] [address] [email or web address] Primary Oncologist Hematology and Oncology 01/01/18 Jair Mendoza DO [address] [place] [address] [email or web address] Family Medicine 01/07/19 Fabiola Irizarry FNP [address] [place] [address] [email or web address] Nurse Practitioner Hematology and Oncology 02/19/21 Additional Source Comments The information contained in this document represents components of the legal health record. It is not the complete legal health record.[facility]
--- OUTSIDE RECORDS SUMMARY | 2025-09-07 07:59 | XMS_ITS | Encounter Summary ---
Author Organization [facility] Address [facility] [address] [address] [address] Phone Care Team Providers Care Deposition Operator Name Role Phone Jair Mendoza DO Primary Care Provider Mahamed Albert DO Unavailable Genie Guerra CNP Primary Care Provide r Jair Mendoza DO Unavailable Jair Mendoza DO Primary Care Provider [phone] Genie Guerra CNP Primary Care Provide r Fabiola Irizarry PUBLIC POLICY PROFESSOR Unavailable Encounter Details Date Type Department Care Team (Latest Contact Info) Description 03/13/[address] [facility] [address] [place] [address] Robe Nelson MD [address] [address] Examination (Primary Dx) Social History Tobacco Use Types Packs/Day Years Used Date Smoking Tobacco: Never Smokeless Tobacco: Never Sex and Gender Information Value Date Recorded Sex Assigned at Male 07/18/2020 2:43 PM EDT Legal Sex Male 9:27 PM EDT Gender Identity Male 07/18/2020 2:43 PM EDT Sexual Orientation Straight 07/18/2020 2: 43 PM EDT documented as of this encounter Plan of Treatment Upcoming Encounters Date Type Department Care Team (Late st Contact Info) Description 01/05/2026 4:30 PM EST Office Visit [facility] [address] [place] [address] Genie Guerra, INCOME TAX INVESTIGATOR [address] [place] [address] [email or web address] documented as of this encounter Results * Ferritin (03/13/2018 3:57 PM EDT) FERRITIN 220 30 - 400 ug/L [facility] Blood 03/13/2018 3:57 PM EDT 03/13/2018 4:02 PM EDT us Robe Nelson MD LAB BLOOD ORDERABLES Final Result [address] [address] * Iron and iron binding capacity (03/13/2018 3:57 PM EDT) IRON 130 45 - 160 ug/dL [facility] IRON BINDING CAPACITY 304 228 - 428 ug/dL [facility] TRANSFERRIN SATURAT. 43 20 - 55 % [facility] Blood 03/13/2018 3:57 PM EDT 03/13/2018 4:02 PM EDT us Robe Nelson MD LAB BLOOD ORDERABLES Final Result [address] [address] * (ABNORMAL) LFTs (hepatic panel) (03/13/2018 3:57 PM EDT) ALKALINE PHOSPHATASE 87 39 - 117 U/L [facility] TOTAL BILIRUBIN 0.8 0.0 - 1.2 mg/dL [facility] DIRECT BILIRUBIN <0.2 0 - 0.3 mg/dL [facility] Bilirubin (Indirect) NOT CALCULATED 0 - 1.5 mg/dL [facility] AST 40(H) 0 - 37 U/L [facility] ALT 70(H) 0 - 40 U/L [facility] TOTAL PROTEIN 7.2 6.5 - 8.0 g/dL [facility] ALBUMIN 4.5 3.9 - 4.8 g/dL [facility] GLOBULIN 2.7 1 - 4.8 g/dL [facility] A/G Ratio 1.67 1.00 - 4.80 RATIO [facility] Blood 03/13/2018 3:57 PM EDT 03/13/2018 4:02 PM EDT us Robe Nelson MD LAB BLOOD ORDERABLES Final Result Performing Organization Address City/State/[facility] Co de Phone Number [address] [address] * (ABNORMAL) CBC (03/13/2018 3:57 PM EDT) WBC 4.45 3.40 - 11.20 K/uL [facility] RBC 4.63 4.50 - 5.50 M/uL [facility] HGB 15.4 13.0 - 17.0 g/dL [facility] HCT 41.7 40.0 - 51.0 % [facility] PLT 138 130 - 400 K/uL [facility] MCV 90.1 79.0 - 98.0 fL [facility] MCH 33.3 27.0 - 34.8 pg [facility] MCHC 36.9(H) 31.5 - 36.0 g/dL [facility] RDW 12.1 10.8 - 14.6 % [facility] MPV 12.1 9.4 - 12.4 fl [facility] NRBC 0.00 /100 WBCs [facility] ABSOLUTE NRBC 0.00 K/uL [facility] Blood 03/13/2018 3:57 PM EDT 03/13/2018 4:02 PM EDT Robe Nelson MD LAB BLOOD ORDERABLES Final Result [facility] [address] [place] [address] documented in this encounter Visit Diagnoses Diagnosis Examination- Primary Unspecified examination documented in this encounter Care Teams Deposition Operator Relationship Specialty Start Date End Date Jair Mendoza DO [address] [place] [address] PCP - General 09/18/17 09/21/18 Genie Guerra, DANAE [address] [place] [address] PCP - General Family Medicine 09/22/18 01/06/19 Jair Mendoza DO [address] [place] [address] PCP - General Family Medicine 01/07/19 03/22/19 Genie Guerra, DANAE [address] [place] [address] PCP - General Family Medicine 03/23/19 Mahamed Albert DO [address] [place] [address] [email or web address] Primary Oncologist Hematology and Oncology 01/01/18 Jair Mendoza DO [address] [place] [address] [email or web address] Family Medicine 01/07/19 Fabiola Irizarry FNP [address] [place] [address] [email or web address] Nurse Practitioner Hematology and Oncology 02/19/21 documented as of this encounter Additional Source Comments The information contained in this document represents components of the legal health record. It is not the complete legal health record.[facility]
--- OUTSIDE RECORDS SUMMARY | 2025-09-07 07:59 | XMS_ITS | Encounter Summary ---
Author Organization [facility] Address [address] [facility] [address] [place] [address] Phone Care Team Providers Care Roof Fixer Name Role Phone Mahamed Albert DO Unavailable [phone] CeciliaEnrrique lafleurthanh Ponce DO Unavailable Genie Guerra CNP Primary Care Provide r Fabiola Irizarry RECREATION COORDINATOR Unavailable Encounter Details Date Type Department Care Team (Latest Contact Info) Description 05/18/2019 Transcribe Orders [facility] [address] [place] [address] Robe Nelson MD [address] [address] [email or web address] Hereditary hemochromatosis (Primary Dx) Social History Tobacco Use Types Packs/Day Years Used Date Smoking Tobacco: Former Smokeless Tobacco: Never Alcohol Use Standard Drinks/Week Comments Yes 0 (1 standard drink = 0.6 oz pur e alcohol) Sex and Gender Information Value Date Recorded Sex Assigned at Male 07/18/2020 2:43 PM EDT Legal Sex Male 9:27 PM EDT Gender Identity Male 07/18/2020 2:43 PM EDT Sexual Orientation Straight 07/18/2020 2: 43 PM EDT documented as of this encounter Plan of Treatment Upcoming Encounters Date Type Department Care Team (Late st Contact Info) Description 01/05/2026 4:30 PM EST Office Visit [facility] [address] [place] [address] Genie Guerra, SYSTEMS TEST ENGINEER [address] [place] [address] [email or web address] documented as of this encounter Results * Ferritin (05/18/2019 3:26 PM EDT) Pathologist [facility] FERRITIN 56 30 - 400 ug/L [facility] Blood 05/18/2019 3:26 PM EDT 05/18/2019 3:30 PM EDT Robe Nelson MD LAB BLOOD ORDERABLES Final Result Performing Organization Address City/[facility]/ZIP Co de Phone Number [address] [address] * Iron and iron binding capacity (05/18/2019 3:26 PM EDT) [facility] IRON 87 45 - 160 ug/dL [facility] IRON BINDING CAPACITY 384 228 - 428 ug/dL [facility] TRANSFERRIN SATURAT. 23 20 - 55 % [facility] Blood 05/18/2019 3:26 PM EDT 05/18/2019 3:30 PM EDT us Robe Nelson MD LAB BLOOD ORDERABLES Final Result [address] [address] * (ABNORMAL) LFTs (hepatic panel) (05/18/2019 3:26 PM EDT) Pathologist [facility] ALKALINE PHOSPHATASE 95 39 - 117 U/L [facility] TOTAL BILIRUBIN 0.6 0.0 - 1.2 mg/dL [facility] DIRECT BILIRUBIN <0.2 0 - 0.3 mg/dL [facility] Bilirubin (Indirect) NOT CALCULATED 0 - 1.5 mg/dL [facility] AST 47(H) 0 - 37 U/L [facility] ALT 83(H) 0 - 40 U/L [facility] TOTAL PROTEIN 7.4 6.5 - 8.0 g/dL [facility] ALBUMIN 4.2 3.9 - 4.8 g/dL [facility] GLOBULIN 3.2 1 - 4.8 g/dL [facility] A/G Ratio 1.31 1.00 - 4.80 RATIO [facility] Blood 05/18/2019 3:26 PM EDT 05/18/2019 3:30 PM EDT us Robe Nelson MD LAB BLOOD ORDERABLES Final Result Performing Organization Address City/State/[facility] Co de Phone Number [address] [address] * (ABNORMAL) Liver fibrosis test (05/18/2019 3:26 PM EDT) Fibrosis score 0.35 [facility] Interpretation (Fibrosis) SEE NOTE [facility] Comment: (NOTE) minimal fibrosis Fibro Test Score Metavir Score 0.00-0.21 F0 no fibrosis 0.22-0.27 F0-F1 0.28-0.31 F1 minimal fibrosis 0.32-0.48 F1-F2 0.49-0.58 F2 moderate fibrosis 0.59-0.72 F3 advanced fibrosis 0.73-0.74 F3-F4 0.75-1.00 F4 severe fibrosis HCV Fibrosis Grade SEE NOTE [facility] Comment:Result: F1 NECROINFLAMM SCORE 0.48 [facility] NECROINFLAMM GRADE SEE NOTE [facility] Comment:Result: A1 NECROINFLAMM INTERP SEE NOTE [facility] Comment: (NOTE) minimal activity ActiTest Score Metavir Score 0.00-0.17 A0 no activity 0.18-0.29 A0-A1 0.30-0.36 A1 minimal activity 0.37-0.52 A1-A2 0.53-0.60 A2 significant activity 0.61-0.62 A2-A3 0.63-1.00 A3 severe activity A2 Macroglobulin 166 106 - 279 mg/dL [facility] Haptoglobin 72 43 - 212 mg/dL [facility] Apolipoprotein A1 128 94 - 176 mg/dL [facility] TOTAL BILIRUBIN 0.7 0.2 - 1.2 mg/dL [facility] GGT 76 3 - 95 U/L [facility] ALT 77(H) 9 - 46 U/L [facility] Specimen/Product ID [id number] [facility] Comments (Chemistry) SEE NOTE [facility] Comment: (NOTE) The reliability of results is dependent on compliance with the preanalytical and analytical conditions recommended by [employer]. The tests have to be deferred for: [...] The performance characteristics have been determined by [facility]. It has not been cleared or approved by the U.S. Food and Drug Administration. Performance characteristics refer to the analytical performance of the test. [employer], the associated logo, [employer]ze and all associated [employer] cerrato are the registered trademarks of [employer]. All third constitution party cerrato - (R) and (TM) - are the property of their respective owners. (C) 9030-0623 [employer]. All rights reserved. Test performed at [employer] [facility] [address] [place] [address] Director: ROBERTO VILLELA MD,PHD,SHANTELL Blood 05/18/2019 3:26 PM EDT 05/18/2019 3:31 PM EDT Robe Nelson MD LAB BLOOD ORDERABLES Final Result [facility] [address] [place] [address] documented in this encounter Visit Diagnoses Diagnosis Hereditary hemochromatosis- Primary documented in this encounter Additional Health Concerns Assessment Noted Time PHQ-2 Depression Total Score: 0 08/21/20 18 3:57 PM EDT documented as of this encounter Care Teams Roof Fixer Relationship Specialty Start Date End Date Genie Guerra CNP [address] [place] [address] [email or web address] PCP - General Family Medicine 03/23/19 Mahamed Albert DO [address] [place] [phone] [email or web address] Primary Oncologist Hematology and Oncology 01/01/18 Jair Mendoza DO [address] [place] [address] [email or web address] Family Medicine 01/07/19 Fabiola Irizarry FNP [address] [place] [address] Nurse Practitioner Hematology and Oncology 02/19/21 documented as of this encounter Additional Source Comments The information contained in this document represents components of the legal health record. It is not the complete legal health record.[facility]
--- OUTSIDE RECORDS SUMMARY | 2025-09-07 07:59 | XMS_ITS | Encounter Summary ---
Author Organization [facility] Address [address] [facility] [address] [place] [phone] Phone Care Team Providers Care Internet Researcher Name Role Phone Mahamed Albert DO Unavailable [phone] CeciliaEnrrique lafleurthanh Ponce DO Unavailable Genie Guerra CNP Primary Care Provide r Fabiola Irizarry COLD MILL INSPECTOR Unavailable Encounter Details Date Type Department Care Team (Latest Contact Info) Description 03/26/2019 Transcribe Orders [facility] [address] [place] [address] Robe Nelson MD [address] [place] [phone] [email or web address] Hemochromatosis, unspecified hemochromatosis type (Primary Dx) Social History Tobacco Use Types [...] Description 01/05/2026 4:30 PM EST Office Visit [facility] [address] [place] [address] Genie Guerra, SERVICE PERSON [address] [place] [address] documented as of this encounter Results * Ferritin (03/26/2019 7:38 AM EDT) FERRITIN 88 30 - 400 ug/L [facility] Blood 03/26/2019 7:38 AM EDT 03/26/2019 7:54 AM EDT Robe Nelson MD LAB BLOOD ORDERABLES Final Result [facility] [address] [place] [address] * (ABNORMAL) CBC (03/26/2019 7:38 AM EDT) WBC 3.94 3.40 - 11.20 K/uL [facility] RBC 4.92 4.50 - 5.50 M/uL [facility] HGB 16.4 13.0 - 17.0 g/dL [facility] HCT 44.7 40.0 - 51.0 % [facility] PLT 123(L) 130 - 400 K/uL [facility] MCV 90.9 79.0 - 98.0 [facility] MCH 33.3 27.0 - 34.8 pg [facility] MCHC 36.7(H) 31.5 - 36.0 g/dL [facility] RDW 12.6 10.8 - 14.6 % [facility] MPV 12.3 9.4 - 12.4 [facility] NRBC 0.00 0.00 /100 WBCs [facility] ABSOLUTE NRBC 0.00 0.00 K/uL [facility] Blood 03/26/2019 7:38 AM EDT 03/26/2019 7:54 AM EDT Robe Nelson MD LAB BLOOD ORDERABLES Final Result [address] [address] documented in this encounter Visit Diagnoses Diagnosis Hemochromatosis, unspecified hemochromatosis type- Primary documented in this encounter Additional Health Concerns Assessment Noted Time PHQ-2 Depression Total Score: 0 08/21/20 18 3:57 PM EDT documented as of this encounter Care Teams Internet Researcher Relationship Specialty Start Date End Date Genie Guerra CNP [address] [place] [address] PCP - General Family Medicine 03/23/19 Mahamed Albert DO [address] [place] [phone] [email or web address] Primary Oncologist Hematology and Oncology 01/01/18 Jair Mendoza DO [address] [place] [id number] Family Medicine 01/07/19 Fabiola Irizarry FNP [address] [place] [address] Nurse Practitioner Hematology and Oncology 02/19/21 documented as of this encounter Additional Source Comments The information contained in this document represents components of the legal health record. It is not the complete legal health record.[facility]
== END 2025-09-07 07:54 | disposition home or self-care (01) ==
LOC: HO.BBR 07:53
PROVIDERS: PCP Family Medicine; Visit Provider Internal Medicine Gastroenterology
DX: E83.118 Other hemochromatosis (principal)
CPT/HCPCS: 85018; 99195

== ENCOUNTER 2025-10-07 08:09 | Outpatient (REF) | payer OTHER, SELFPAY | END 2025-10-07 08:10 | disposition home or self-care (01) | LOC: HO.BBR 08:09 | PROVIDERS: PCP Family Medicine; Visit Provider Internal Medicine Gastroenterology | DX: E83.118 Other hemochromatosis (principal) | CPT/HCPCS: 85014; 85018; 99195 ==

== ENCOUNTER 2025-11-09 08:03 | Outpatient (REF) | payer OTHER, SELFPAY ==
--- OUTSIDE RECORDS SUMMARY | 2025-11-09 08:14 | XMS_ITS | Clinical Summary ---
Author Organization [facility] Address [address] [place] [address] Care Team Providers Care Saw Superintendent Name Role Phone Unknown, Provider MD Primary [...] - 19+ 3-dose series) 01/06 COVID-19 Vaccine (2024- season) 2025 Care Teams Saw Superintendent Relationship Specialty Start Date End Date Unknown, Provider, PCP - General 04/07/14
== END 2025-11-09 08:04 | disposition home or self-care (01) ==
LOC: HO.BBR 08:03
PROVIDERS: PCP Family Medicine; Visit Provider Internal Medicine Gastroenterology
DX: E83.118 Other hemochromatosis (principal)
CPT/HCPCS: 85014; 85018; 99195